=== PATIENT | female | born 1945 ===

== ENCOUNTER 2018-05-12 10:18 | Emergency (ER) | payer MEDICARE, OTHER ==
[2018-05-12 10:53] VITALS: RESP 20
--- NOTE | 2018-05-12 12:06 | C.PDOC ---
History Of Present Illness 72 year old female presents to ED with complaint of diffuse, pruritic rash for the past 3 weeks. Patient states that the itching is intermittent. She denies the use of any new products or medications. Patient denies fever, chills, diaphoresis, and difficulty breathing. Time Seen by Provider: 05/12/18 11:21 Chief Complaint (Nursing): Abnormal Skin Integrity History Per: Patient History/Exam Limitations: no limitations Onset/Duration Of Symptoms: Intermittent Episodes, Other (3 weeks) Current Symptoms Are (Timing): Still Present Quality Of Symptoms: Itching Past Medical History Reviewed: Historical Data, Nursing Documentation, Vital Signs Vital Signs: Last Vital Signs Temp 97.8 F 05/12/18 10:48 Pulse 60 05/12/18 10:48 Resp 20 05/12/18 10:48 BP 171/78 H 05/12/18 10:48 Pulse Ox 100 05/12/18 10:48 - Medical History PMH: Arthritis, Diabetes, HTN, Hypercholesterolemia Denies: Chronic Kidney Disease Surgical History: Cholecystectomy Family History: States: Unknown Family Hx - Social History Hx Tobacco Use: No Hx Alcohol Use: No Hx Substance Use: No - Immunization History Hx Tetanus Toxoid Vaccination: No Hx Influenza Vaccination: No Hx Pneumococcal Vaccination: No Review Of Systems Constitutional: Negative for: Fever, Chills, Weakness Respiratory: Negative for: Shortness of Breath, Wheezing Skin: Positive for: Rash (diffuse, pruritic) Neurological: Negative for: Weakness, Numbness, Dizziness Physical Exam - Physical Exam Appears: Well, Non-toxic, No Acute Distress, Other (normal voice) Skin: Rash (diffuse urticaria rash throughout the extremities and the trunk) Head: Atraumatic, Normacephalic Oral Mucosa: Moist Tongue: No Swelling Lips: No Swelling Throat: Normal, No Erythema, No Exudate Neck: Normal ROM, Supple Chest: Symmetrical, No Deformity Cardiovascular: Rhythm Regular, No Murmur Respiratory: No Accessory Muscle Use, No Wheezing Neurological/Psych: Oriented x3, Normal Speech, Normal Cognition ED Course And Treatment O2 Sat by Pulse Oximetry: 100 (in RA) Progress Note: Patient given Bendadryl PO, Pepcid PO, and Prednisone PO. Patient given list of dermatologists for follow up. Re-evaluation. Patient feels better. Discussed plan with patient who expresses understanding. All questions answered and there is agreement with the plan to discharge home with instructions. Patient stable for discharge. Return if symptoms persist or worsen Disposition - Disposition Disposition: HOME/ ROUTINE Disposition Time: 12:04 Condition: STABLE Additional Instructions: Follow up with PMD and [employer] as scheduled. Return to ED if feel worse. Prescriptions: DiphenhydrAMINE [Benadryl] 25 mg PO .Q4-6 H #30 cap Famotidine [Pepcid] 20 mg PO BID #20 tab predniSONE [predniSONE Tab] 2 tab PO DAILY #8 tab Instructions: Skin Rash (DC) Forms: [employer] (Andorran) - Clinical Impression Clinical Impression: Skin rash - PA / [employer] / Resident Statement MD/DO has reviewed & agrees with the documentation as recorded. (Keiry teague) - Scribe Statement The provider has reviewed the documentation as recorded by the Scribe (Keiry Lane) All medical record entries made by the Scribe were at my direction and personally dictated by me. I have reviewed the chart and agree that the record accurately reflects my personal performance of the history, physical exam, medical decision making, and the department course for this patient. I have also personally directed, reviewed, and agree with the discharge instructions and disposition.
[2018-05-12 12:08] VITALS: BP 156/78; PULSE 55; TEMP 98.6
[2018-05-12 14:32] VITALS: O2SAT 100
== END 2018-05-12 12:19 | disposition home or self-care (01) ==
LOC: C.ER 10:18
DX: R21 Rash and other nonspecific skin eruption (principal)